=== PATIENT | male | born 1995 | race Caucasian/White ===

== ENCOUNTER 2018-02-01 09:21 | Emergency (ER) | payer BC ==
[2018-02-01 09:34] VITALS: BP 133/78
--- NOTE | 2018-02-01 10:07 | ER Document Report ---
ED Neck/Back Problem - General Chief Complaint: Back Pain Stated Complaint: BACK PAIN Time Seen by Provider: 02/01/18 09:42 Notes: Patient is a 22-year-old male with a history of epilepsy complaining of mid to lower back pain 2 weeks. Patient denies any injury. Patient denies any fever , paresthesia, radiculopathy, bowel or bladder change. 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 This showed fish shaped vertebral bodies extending from T7 into the upper lumbar level. There was no foraminal encroachment TRAVEL OUTSIDE OF THE [place] IN LAST 30 DAYS: No - HPI Onset: Other - 2 wks Onset: Gradual Timing: Waxing and waning Quality of pain: Burning, Dull Recent injury: No Associated symptoms: denies: Abdominal pain, Fever, Incontinence, Motor loss, Numbness/tingling, Radiation to arm, Radiation to leg, Sensory loss, Unable to urinate Exacerbated by: Other - bending over Relieved by: Nothing Similar symptoms previously: Yes - Related Data Allergies/Adverse Reactions: No Known Allergies Allergy (Unverified 06/06/12 14:12) Past Medical History - General Information source: Patient, Parent - Social History Smoking Status: Never Smoker Frequency of alcohol use: Social Drug Abuse: None Lives with: Family Family History: Reviewed & Not Pertinent Patient has suicidal ideation: No Patient has homicidal ideation: No Neurological Medical History: Reports: Hx Migraine, Hx Seizures Renal/ Medical History: Denies: Hx Peritoneal Dialysis Past Surgical History: Reports: Hx Tonsillectomy - T&A - Immunizations Hx Diphtheria, Pertussis, Tetanus Vaccination: Yes Review of Systems - Review of Systems Constitutional: No symptoms reported EENT: No symptoms reported Cardiovascular: No symptoms reported Respiratory: No symptoms reported Gastrointestinal: No symptoms reported Genitourinary: No symptoms reported Male Genitourinary: No symptoms reported Musculoskeletal: See HPI Skin: No symptoms reported Hematologic/Lymphatic: No symptoms reported Neurological/Psychological: No symptoms reported Physical Exam - Vital signs Vitals: Temp Pulse Resp BP Pulse Ox 98.4 F 69 14 133/78 H 98 02/01/18 09:32 02/01/18 09:32 02/01/18 09:32 02/01/18 09:32 02/01/18 09:32 Interpretation: Normal - General General appearance: Appears well, Alert - HEENT Head: Normocephalic, Atraumatic Eyes: Normal Pupils: PERRL - Respiratory Respiratory status: No respiratory distress Chest status: Nontender Breath sounds: Normal Chest palpation: Normal - Cardiovascular Rhythm: Regular Heart sounds: Normal auscultation Murmur: No - Abdominal Inspection: Normal Distension: No distension Bowel sounds: Normal Tenderness: Nontender Organomegaly: No organomegaly - Back Back: Vertebra tenderness - mild thoracic and lumbar spinal and paraspinal tenderness - Extremities General upper extremity: Normal inspection, Nontender, Normal color, Normal ROM , Normal temperature General lower extremity: Normal inspection, Nontender, Normal color, Normal ROM , Normal temperature, Normal weight bearing. No: Malissa's sign - Neurological Neuro grossly intact: Yes Cognition: Normal Orientation: AAOx4 [place] Coma Scale Eye Opening: Spontaneous [place] Coma Scale Verbal: Oriented Vera Coma Scale Motor: Obeys Commands [place] Coma Scale Total: 15 Speech: Normal Motor strength normal: LUE, RUE, LLE, RLE Sensory: Normal - Psychological Associated symptoms: Normal affect, Normal mood - Skin Skin Temperature: Warm Skin Moisture: Dry Skin Color: Normal Course - Re-evaluation Re-evalutation: 02/01/18 10:09 After performing a Medical Screening Examination, I estimate there is LOW risk for EXPANDING OR RUPTURED ABDOMINAL AORTIC ANEURYSM, CAUDA EQUINA SYNDROME, EPIDURAL MASS LESION, or HERNIATED DISK CAUSING SEVERE SPINAL STENOSIS, thus I consider the discharge disposition reasonable. I have reevaluated this patient multiple times and no significant life threatening changes are noted. The patient and I have discussed the diagnosis and risks, and we agree with discharging home and close follow-up. We also discussed returning to the Emergency Department immediately if new or worsening symptoms occur with the understanding that symptoms and presentations can change. We have discussed the symptoms which are most concerning (e.g., saddle anesthesia, urinary or bowel incontinence or retention, changing or worsening pain) that necessitate immediate return. 02/01/18 11:34 Thoracic and lumbar x-rays are negative for acute findings. These results were reviewed with patient and parent. Parent has scheduled an appointment with [facility] for tomorrow for further evaluation. Patient is steadily and independently ambulatory. There are no neurologic deficits. I will write a short prescription for muscle relaxant. Patient has 800 mg ibuprofen at home which he was instructed to continue to take 3 times a day. Recommended a topical anesthetic such as Aspercreme with lidocaine. Patient is agreeable with plan is stable for discharge 02/01/18 11:37 - Vital Signs Vital signs: Temp Pulse Resp BP Pulse Ox 98.4 F 69 14 133/78 H 98 02/01/18 09:32 02/01/18 09:32 02/01/18 09:32 02/01/18 09:32 02/01/18 09:32 Discharge - Discharge Clinical Impression: Back pain Qualifiers: Back pain location: thoracic back pain Chronicity: acute Back pain laterality: midline Qualified Code(s): M54.6 - Pain in thoracic spine Condition: Stable Disposition: HOME, SELF-CARE Instructions: Ice Packs ([facility]), Warm Packs ([facility]), Muscle Relaxers ([facility]) Additional Instructions: Your x-rays were negative for any acute findings Follow-up with [facility] tomorrow for further evaluation You have been prescribed a muscle relaxant. Take as prescribed Continue the ibuprofen 800 mg 3 times a day Prescriptions: Methocarbamol [Robaxin 500 Mg Tablet] 1,000 mg PO Q6 #30 tablet
--- NOTE | 2018-02-01 11:18 | RADIOLOGY REPORT (SQ) ---
EXAM DESCRIPTION: T SPINE AP/LAT COMPLETED DATE/TIME: 02/01/2018 10:52 am REASON FOR STUDY: worsening pain COMPARISON: None. NUMBER OF VIEWS: Two views. TECHNIQUE: AP and lateral radiographic images acquired of the thoracic spine. LIMITATIONS: None. FINDINGS: MINERALIZATION: Normal. ALIGNMENT: Mild sigmoid scoliosis. VERTEBRAE: No fracture or bone lesion. Maintained height, normal segmentation. DISCS: No significant loss of height or significant narrowing. No large osteophytes. HARDWARE: None in the spine. MEDIASTINUM AND SOFT TISSUES: Normal heart size and aortic contour. No soft tissue abnormality. VISUALIZED LUNG MALLOY: Clear. OTHER: No other significant finding. IMPRESSION: No acute findings. TECHNICAL DOCUMENTATION: JOB ID: [id number] [employer]- All Rights Reserved Reading location - IP/workstation name: [email or web address]
--- NOTE | 2018-02-01 11:18 | RADIOLOGY REPORT (SQ) ---
EXAM DESCRIPTION: L SPINE WHOLE COMPLETED DATE/TIME: 02/01/2018 10:52 am REASON FOR STUDY: worsening pain COMPARISON: None. NUMBER OF VIEWS: Five views including obliques. TECHNIQUE: AP, lateral, oblique, and sacral radiographic images acquired of the lumbar spine. LIMITATIONS: None. FINDINGS: MINERALIZATION: Normal. SEGMENTATION: Normal. No transitional anatomy. ALIGNMENT: Normal. VERTEBRAE: Maintained height. No fracture or worrisome bone lesion. DISCS: Preserved height. No significant osteophytes or end plate irregularity. POSTERIOR ELEMENTS: Pedicles and facets are intact. No pars defect or posterior arch defects. HARDWARE: None in the spine. PARASPINAL SOFT TISSUES: Normal. PELVIS: Intact as visualized. No fractures or worrisome bone lesions. SI joints intact. OTHER: No other significant finding. IMPRESSION: NORMAL 5 VIEW LUMBAR SPINE. TECHNICAL DOCUMENTATION: JOB ID: [id number] [employer]- All Rights Reserved Reading location - IP/workstation name: [email or web address]
[2018-02-01] MEDS ORDERED: KETOROLAC TROMETHAMINE 60 MG/2 ML SDV IM ONE (11:30)
[2018-02-01] MEDS ORDERED: DEXAMETHASONE SOD PHOS INJ 10 MG/1 ML VIAL IM ONE (11:31)
== END 2018-02-01 11:48 | disposition home or self-care (01) ==
LOC: ER 09:21
DX: M54.6 Pain in thoracic spine (principal); M54.9 Dorsalgia, unspecified; M54.5 Low back pain
CPT/HCPCS: 99283; 96372; 72110; 72070; J1885; J1100

== ENCOUNTER 2020-06-21 13:26 | Emergency (ER) | payer OTHER, BC ==
[2020-06-21 13:33] VITALS: BP 135/77
[2020-06-21] MEDS ORDERED: DIPH/PERTUSS(ACELL)/TETANUS VAC/PF 0.5 ML SYR (>=10YO) IM ONE (14:24)
--- NOTE | 2020-06-21 14:30 | ER Document Report ---
ED Hand/Wrist Injury - General Chief Complaint: Hand Pain Stated Complaint: FINGER PAIN Time Seen by Provider: 06/21/20 14:19 Mode of Arrival: Ambulatory Information source: Patient Notes: 25-year-old male presented to ED for complaint of superficial laceration to the left thumb. He states he was cutting open a box with a brand-new punch box tender when he sliced his thumb. It is very superficial but was bleeding at work so his boss sent him to the emergency room to have it checked out. It does not need sutures he did break the skin and does not have any idea when his last tetanus was so he will need a tetanus immunization. There is no bleeding at this time. I have cleaned it with soap and water applied bacitracin and Band- Aid. I have given the patient instructions on how to clean and dress the wound. I have given him several options for follow-up. He will get a tetanus immunization while in the emergency room and he has been told to keep record of his tetanus immunization. TRAVEL OUTSIDE OF THE [place] IN LAST 30 DAYS: No - HPI Injury to: Thumb - Right Onset: This morning Where: Work Quality of pain: No pain Severity: None Pain Level: Denies Context: Laceration - Related Data Allergies/Adverse Reactions: No Known Allergies Allergy (Unverified 06/06/12 14:12) Past Medical History - General Information source: Patient - Social History Smoking Status: Former Smoker Frequency of alcohol use: Rare Drug Abuse: None Occupation: Loads and unloads Lives with: Family Family History: Reviewed & Not Pertinent Patient has suicidal ideation: No Patient has homicidal ideation: No - Past Medical History Cardiac Medical History: Reports: None Pulmonary Medical History: Reports: None EENT Medical History: Reports: None Neurological Medical History: Reports: Hx Migraine, Hx Seizures Endocrine Medical History: Reports: None Renal/ Medical History: Reports: None Malignancy Medical History: Reports None GI Medical History: Reports: None Musculoskeletal Medical History: Reports None Skin Medical History: Reports None Psychiatric Medical History: Reports: None Traumatic Medical History: Reports: None Infectious Medical History: Reports: None Past Surgical History: Reports: Hx Adenoidectomy, Hx Tonsillectomy - T&A - Immunizations Immunizations up to date: Yes Hx Diphtheria, Pertussis, Tetanus Vaccination: Yes - 06/21/2020 Review of Systems - Review of Systems Constitutional: No symptoms reported EENT: No symptoms reported Cardiovascular: No symptoms reported Respiratory: No symptoms reported Gastrointestinal: No symptoms reported Genitourinary: No symptoms reported Male Genitourinary: No symptoms reported Musculoskeletal: No symptoms reported Skin: No symptoms reported Hematologic/Lymphatic: No symptoms reported Neurological/Psychological: No symptoms reported -: Yes All other systems reviewed and negative Physical Exam - Vital signs Vitals: Temp Pulse Resp BP Pulse Ox 97.9 F 70 16 135/77 H 100 06/21/20 13:32 06/21/20 13:32 06/21/20 13:32 06/21/20 13:32 06/21/20 13:32 Interpretation: Normal - General General appearance: Appears well, Alert - HEENT Head: Normocephalic, Atraumatic Eyes: Normal Pupils: PERRL - Respiratory Respiratory status: No respiratory distress Chest status: Nontender Breath sounds: Normal Chest palpation: Normal - Cardiovascular Rhythm: Regular Heart sounds: Normal auscultation Murmur: No - Abdominal Inspection: Normal Distension: No distension Bowel sounds: Normal Tenderness: Nontender Organomegaly: No organomegaly - Back Back: Normal, Nontender - Extremities General upper extremity: Normal inspection, Nontender, Normal color, Normal ROM, Normal temperature General lower extremity: Normal inspection, Nontender, Normal color, Normal ROM, Normal temperature, Normal weight bearing. No: Malissa's sign - Neurological Neuro grossly intact: Yes Cognition: Normal Orientation: AAOx4 [place] Coma Scale Eye Opening: Spontaneous Vera Coma Scale Verbal: Oriented Vera Coma Scale Motor: Obeys Commands [place] Coma Scale Total: 15 Speech: Normal Motor strength normal: LUE, RUE, LLE, RLE Sensory: Normal - Psychological Associated symptoms: Normal affect, Normal mood - Skin Skin Temperature: Warm Skin Moisture: Dry Skin Color: Normal Skin irregularity: Laceration - superficial laceration 2 cm long no active bleeding left some Course - Re-evaluation Re-evalutation: 06/21/20 14:34 Wound was cleaned well with soap and water rinsed with water bacitracin and Band-Aid applied. It did not need sutures. He was treated with tetanus immunization. He denied any pain even during the cleaning. He was discharged home to follow-up with his primary care doctor. - Vital Signs Vital signs: Temp Pulse Resp BP Pulse Ox 97.9 F 70 16 135/77 H 100 06/21/20 13:32 06/21/20 13:32 06/21/20 13:32 06/21/20 13:32 06/21/20 13:32 Discharge - Discharge Clinical Impression: Laceration of left thumb without complication Qualifiers: Encounter type: initial encounter Qualified Code(s): S61.012A - Laceration without foreign body of left thumb without damage to nail, initial encounter Condition: Stable Disposition: HOME, SELF-CARE Additional Instructions: NON-SUTURED LACERATION: Your laceration did not require suturing. Some lacerations cannot be sutured because of increased infection risk, while others simply don't need stitches because they are shallow or very short. Your injury should be protected while it heals. Usually complete healing takes 10 to 14 days. Keep the dressing clean and dry, and change it every day. If you notice increasing pain, redness, swelling, drainage, or tender lumps in the armpit or groin above the injury, infection may be present. You should call the doctor at once. SOAP CLEANSING: Gently wash the wound daily using a mild soap (like Ivory, Phisoderm, Neutrogena). Use warm water, rubbing gently until all debris, ooze, and crusting have been washed from the wound. Allow to dry briefly (about 10 minutes) after cleaning. Repeat this cleansing at least three times a day for the first two days and then once or twice a day. ANTIBIOTIC OINTMENT PROTECTION: Your wounds are such that dressing them is not practical or optional. After cleansing, you should apply a thin coating of antibiotic ointment (Bacitracin, not Neosporin) to the wounds at least three times daily. This lessens infection risk, and may decrease the amount of scarring. Use a q-tip or dull butter knife, not your finger, to apply this ointment. Any debris or ooze which builds up in the ointment should be gently rubbed off with a sterile gauze pad. Harder crusting may need to be gently scrubbed off with a clean wash cloth with soap and warm water, perhaps applying a warm, wet wash cloth to the wound for ten minutes first. Development of redness, severe itching, or blistering may mean allergy to the ointment. See the doctor. TETANUS IMMUNIZATION GIVEN: You have been given an immunization against tetanus. Please record this in your records. In general, a booster is needed only once every 10 years. The tetanus shot protects against tetanus or "lockjaw," which is a complication of certain wound infections (the tetanus shot cannot protect against the actual infection). The immunization site may become warm and red due to local reaction. If this occurs, apply warm compresses and take aspirin or ibuprofen to reduce inflammation and discomfort. Return for evaluation if the reaction becomes severe. FOLLOW-UP CARE: If you have been referred to a physician for follow-up care, call the physicians office for an appointment as you were instructed or within the next two days. If you experience worsening or a significant change in your symptoms, notify the physician immediately or return to the Emergency Department at any time for re-evaluation. Forms: Elevated Blood Pressure Referrals: [facility] [Provider Group] - Follow up as needed [facility] [Provider Group] - Follow up as needed ERLINDA MARLEY MD [ACTIVE STAFF] - Follow up as needed EULA MARKHAM MD [ACTIVE STAFF] - Follow up as needed
== END 2020-06-21 14:38 | disposition home or self-care (01) ==
LOC: ER 13:26
DX: S61.012A Laceration without foreign body of left thumb without damage to nail, initial encounter (principal); W26.0XXA Contact with knife, initial encounter; Y99.0 Civilian activity done for income or pay; Z87.891 Personal history of nicotine dependence
CPT/HCPCS: 90471; 90715; 99282